=== PATIENT | female | born 2000 | race Caucasian/White ===

== ENCOUNTER 2020-02-11 18:52 | Emergency (ER) | payer OTHER, SELFPAY ==
--- NOTE | 2020-02-11 19:27 | PC.NURSE ---
PT is sitting in her room watching TV. Calm and cooperative. Waiting for disposition.
[2020-02-11 19:49] LABS: Amphetamine Screen Urine Not Detected (Not Detect); Barbiturates, Urine Not Detected (Not Detect); Benzodiazepines Screen Urine Not Detected (Not Detect); Cannabinoid Screen Urine POSITIVE (Not Detect); Cocaine Screen Urine Not Detected (Not Detect); Opiate Screen Urine Not Detected (Not Detect); Phencyclidine Screen Urine Not Detected (Not Detect)
[2020-02-11 19:51] LABS: UPreg QC Valid YES; Urine Pregnancy NEGATIVE (NEGATIVE)
[2020-02-11 20:05] VITALS: BMI 19.5
--- NOTE | 2020-02-11 20:12 | ED.PSYCH ---
HPI - Psych General Chief Complaint: Psychiatric Symptoms Stated Complaint: CRISIS Time Seen by Provider: 02/11/20 20:28 Source: patient Mode of arrival: ambulatory Limitations: no limitations History of Present Illness HPI Narrative: patient brought to the ED for possible suicide thoughts or intent. Patient was found the bridge. Patient herself denies ever being suicidal. Patient states she was on the bridge looking for her loss social security card and credit card bills. Patient states her and her parents had a pleasant interaction today and she was having a great time with her nephew when she realized she lost her cards. Patient states she is just came from [place] and she is under lot of stress. Related Data Allergies Allergy/AdvReac Type Severity Reaction Status Date / Time No Known Allergies Allergy Unverified 12/19/19 16:44 Review of Systems Review of Systems: Yes all other systems are reviewed and are negative Constitutional: Constitutional: Reports as per HPI and Reports no additional constitutional complaints Eyes: Eyes: Reports as per HPI and Reports no additional eye complaints ENT: Reports system reviewed and no additional complaints, except as documented and Reports as per HPI Cardiovascular: Cardiovascular: Reports as per HPI and Reports no additional cardiovascular complaints Respiratory: Respiratory: Reports as per HPI and Reports no additional respiratory complaints Gastrointestinal: Gastrointestinal: Reports as per HPI and Reports no additional gastrointestinal complaints Genitourinary: Genitourinary: Reports no additional female genitourinary complaints and Reports as per HPI Musculoskeletal: Musculoskeletal: Reports no additional musculoskeletal complaints and Reports as per HPI Neurologic: Reports system reviewed and no additional complaints, except as documented and Reports as per HPI Psychiatric: Psychiatric: Reports no additional psychiatric complaints and Reports as per HPI PMF Social History Social History Alcohol intake: never Smoking Status: Light tobacco smoker Smoked in Last 30 Days: No Use of substances other than those prescribed or required for medical reasons: Yes Substance Use Type: Marijuana Substance Use Frequency: Daily Last Used Substance: Hours (ago) Any prior treatment program specific to substance use: No Advance Directives: No Advance Directives Information Provided: Yes Physical Exam Vital Signs: Vital Signs: Last Vital Signs Temp 97.8 F 02/11/20 20:23 Pulse 65 02/11/20 20:23 Resp 18 02/11/20 20:23 BP 96/56 L 02/11/20 20:23 Pulse Ox 98 02/11/20 20:23 Body Mass Index 19.5 Const: General: cooperative, healthy appearing, comfortable, no acute distress, well developed, alert, awake, Physically active and acute distress Orientation/consciousness: patient oriented x3 HENMT: Head: Yes normal to inspection and Yes No palpable skull fracture present Eyes: General: appearance normal, both eyes and all related structures Visual Cardona: normal visual cardona by confrontation Neck: Neck: Yes normal visual inspection, Yes full ROM, Yes no lymphadenopathy, Yes no meningeal signs and Yes trachea midline Chest: Chest palpation & inspection: normal inspection of the chest, normal palpation of entire chest wall and no localized rib tenderness Resp: Effort & Inspection: normal respiratory effort, able to speak in complete sentences and no audible wheezes Auscultation: clear to auscultation bilaterally, no crackles, no rales, no rhonchi and no wheezes Cardio: Jugular venous distension: no JVD Heart sounds: S1 normal heart sound present and S2 normal heart sound present GI: Inspection: Yes normal to inspection and No abdominal wall ecchymosis Palpation (GI): Soft to palpation, not firm, nontender, no guarding and not rigid : General: No CVA tenderness and Yes no CVA tenderness Back/Spine/Pelvis: Back: no CVA tenderness, No CVA tenderness and No back tenderness Skin: General skin exam: no rashes or lesions noted Trauma: no lacerations or abrasions Neuro: General: patient oriented x3, gait normal, no meningeal signs and CN's II-XI intact bilaterally Cranial nerves: Yes CN's II-XII intact bilaterally Extrem: General: Yes normal to inspection and Yes full ROM Psych: Appearance: grossly normal, well kempt and not disheveled Course Course Course Narrative: Patient will have basic labs done including U tox and be evaluated by care team. Patient seemed very animated while being interviewed. Reevaluation(s) Reevaluation #1: patient evaluated by [facility] consultant who states she cannot get in contact with patient's mother to confirm story. She recommend patient stay overnight until mother can be reached and then patient to be re-evaluated. Case signed out to MD Gotti. Time: 03:06 MDM - Psych MDM Narrative Medical decision making narrative: Depression Lab Data Result diagrams: 02/11/20 21:12 02/11/20 21:12 Labs: Lab Results 11/10/20 11/10/20 11/10/20 Range/Units 19:12 19:12 21:12 WBC 8.9 (4.8-10.8) X10*3/uL RBC 4.76 (4.20-5.50) X10*6/uL Hgb 13.7 (12.0-16.0) g/dl Hct 41.0 (37-47) % MCV 86.1 (80-98) fL MCH 28.8 (27.0-33.0) pg MCHC 33.4 (31.0-35.0) g/dl RDW 12.7 (11.0-16.0) % Plt Count 250 (160-400) X10*3/uL MPV 10.2 (9.4-12.3) fL Immature Gran % (Auto) 0.2 (0.0-0.4) % Neut % (Auto) 82.3 H (45-73) % Lymph % (Auto) 10.9 L (20-40) % Mcdowell % (Auto) 6.1 (2-11) % Eos % (Auto) 0.1 (0-4) % Baso % (Auto) 0.4 (0-2) % Lymph # (Auto) 1.0 L (1.2-4.9) X10*3/uL Mcdowell # (Auto) 0.5 (0.1-1.2) X10*3/uL Eos # (Auto) 0.0 (0.0-0.4) X10*3/uL Baso # (Auto) 0.0 (0.0-0.2) X10*3/uL Abs Immat Gran (auto) 0.02 (0.00-0.03) X10*3/uL Absolute Neuts (auto) 7.3 (2.0-8.3) X10*3/uL Absolute Nucleated RBC 0.000 (0.0-0.012) X10*3/uL Nucleated RBC % (auto) 0.0 (0.0-0.2) /100WBC Sodium (135-145) mmol/L Potassium (3.3-5.1) mmol/l Chloride (96-108) mmol/L Carbon Dioxide (22-29) mmol/L Anion Gap (12-20) BUN (9-16) mg/dL Creatinine (0.5-1.4) mg/dL Estim Creat Clear Calc Estimated GFR Random Glucose (60-115) mg/dL Calcium (8.4-10.2) mg/dL Total Bilirubin (0.0-1.0) mg/dL Direct Bilirubin (0.0-0.5) mg/dL AST (5-31) U/L ALT (0-31) U/L Alkaline Phosphatase (39-117) U/L Total Protein (6.5-8.0) g/dL Albumin (3.5-5.0) g/dL Urine Test NEGATIVE (NEGATIVE) Urine Opiates Screen Not Detected (Not Detect) Ur Barbiturates Screen Not Detected (Not Detect) Ur Phencyclidine Scrn Not Detected (Not Detect) Ur Amphetamines Screen Not Detected (Not Detect) U Benzodiazepines Scrn Not Detected (Not Detect) Urine Cocaine Screen Not Detected (Not Detect) U Marijuana (THC) Screen POSITIVE H (Not Detect) Ethyl Alcohol mg/dL 02/11/20 02/11/20 Range/Units 21:12 21:12 WBC (4.8-10.8) X10*3/uL RBC (4.20-5.50) X10*6/uL Hgb (12.0-16.0) g/dl Hct (37-47) % MCV (80-98) fL MCH (27.0-33.0) pg MCHC (31.0-35.0) g/dl RDW (11.0-16.0) % Plt Count (160-400) X10*3/uL MPV (9.4-12.3) fL Immature Gran % (Auto) (0.0-0.4) % Neut % (Auto) (45-73) % Lymph % (Auto) (20-40) % Mcdowell % (Auto) (2-11) % Eos % (Auto) (0-4) % Baso % (Auto) (0-2) % Lymph # (Auto) (1.2-4.9) X10*3/uL Mcdowell # (Auto) (0.1-1.2) X10*3/uL Eos # (Auto) (0.0-0.4) X10*3/uL Baso # (Auto) (0.0-0.2) X10*3/uL Abs Immat Gran (auto) (0.00-0.03) X10*3/uL Absolute Neuts (auto) (2.0-8.3) X10*3/uL Absolute Nucleated RBC (0.0-0.012) X10*3/uL Nucleated RBC % (auto) (0.0-0.2) /100WBC Sodium 138 (135-145) mmol/L Potassium 3.9 (3.3-5.1) mmol/l Chloride 103 (96-108) mmol/L Carbon Dioxide 26 (22-29) mmol/L Anion Gap 13 (12-20) BUN 13 (9-16) mg/dL Creatinine 0.77 (0.5-1.4) mg/dL Estim Creat Clear Calc 91.0 Estimated GFR > 60 Random Glucose 91 (60-115) mg/dL Calcium 9.3 (8.4-10.2) mg/dL Total Bilirubin 0.8 (0.0-1.0) mg/dL Direct Bilirubin 0.3 (0.0-0.5) mg/dL AST 19 (5-31) U/L ALT 13 (0-31) U/L Alkaline Phosphatase 63 (39-117) U/L Total Protein 7.5 (6.5-8.0) g/dL Albumin 4.9 (3.5-5.0) g/dL Urine Test (NEGATIVE) Urine Opiates Screen (Not Detect) Ur Barbiturates Screen (Not Detect) Ur Phencyclidine Scrn (Not Detect) Ur Amphetamines Screen (Not Detect) U Benzodiazepines Scrn (Not Detect) Urine Cocaine Screen (Not Detect) U Marijuana (THC) Screen (Not Detect) Ethyl Alcohol < 10 mg/dL Discharge Plan Discharge Clinical Impression: Depression
[2020-02-11 20:23] VITALS: BP 96/56; PULSE 65; RESP 18; TEMP 36.6; O2SAT 98
--- NOTE | 2020-02-11 20:46 | PC.NURSE ---
Mom called for a report on her daughter. PT gave consent to talk to mother. Mother stated that PT was texting her father saying that she wanted to kill herself. Mother also stated that the PT has been very stressed out since moving back in with mother and while trying to find a job. PT denied texting her father and saying that she wants to kill herself.
[2020-02-11 21:21] LABS: Basophils Percent Auto 0.4 % (0-2); Eosinophils Percent Auto 0.1 % (0-4); Hemoglobin 13.7 g/dl (12.0-16.0); Imm Gran Abs Auto 0.02 X10*3/uL (0.00-0.03); Imm Gran Pct Auto 0.2 % (0.0-0.4); Lymphocytes Percent Auto 10.9 % (20-40); MANUAL DIFF FLAG NO; Mean Corpuscular HGB Conc 33.4 g/dl (31.0-35.0); Mean Corpuscular Hemoglobin 28.8 pg (27.0-33.0); Mean Corpuscular Volume 86.1 fL (80-98); Mean Platelet Volume 10.2 fL (9.4-12.3); Monocytes Absolute Auto 0.5 X10*3/uL (0.1-1.2); Monocytes Percent Auto 6.1 % (2-11); Neutrophils Absolute Auto 7.3 X10*3/uL (2.0-8.3); Neutrophils Percent Auto 82.3 % (45-73); Platelet Count 250 X10*3/uL (160-400); Red Blood Count 4.76 X10*6/uL (4.20-5.50); Red Cell Distribution Width 12.7 % (11.0-16.0); White Blood Count 8.9 X10*3/uL (4.8-10.8)
[2020-02-11 21:50] LABS: Ethanol < 10 mg/dL
[2020-02-11 21:55] LABS: Alanine Aminotransferase 13 U/L (0-31); Albumin Level 4.9 g/dL (3.5-5.0); Alkaline Phosphatase 63 U/L (39-117); Anion Gap 13 (12-20); Aspartate Amino Transferase 19 U/L (5-31); Bilirubin Direct 0.3 mg/dL (0.0-0.5); Bilirubin Total 0.8 mg/dL (0.0-1.0); Blood Urea Nitrogen 13 mg/dL (9-16); Calcium 9.3 mg/dL (8.4-10.2); Carbon Dioxide 26 mmol/L (22-29); Chloride 103 mmol/L (96-108); Estimated Glomerular Filt Rate > 60; Glucose Random 91 mg/dL (60-115); Potassium 3.9 mmol/l (3.3-5.1); Sodium 138 mmol/L (135-145); Total Protein 7.5 g/dL (6.5-8.0)
[2020-02-12 06:49] VITALS: BP 117/71; PULSE 105; RESP 18; TEMP 37.1; O2SAT 99
[2020-02-12 07:58] VITALS: RESP 18
--- NOTE | 2020-02-12 10:23 | MHC.CARE ---
0900 Lengthy conversation with patient's mother. She confirmed the information gathered last night about patient feeling overwhelmed by stressors such as recent breakup, losing her ID, upset that her father did not answer his phone. She reported that family is very supportive of her and are close. Mother is not worried about her daughter's safety, said she has never threatened or gestured suicide, said she has spoken to her daughter this morning and looking forward to bringing her home, will help her replace the ID today. Met with patient in BH area of the ED, she was easily engaged, denied any thoughts of ending her; stated she was being dramatic yesterday, feels very different today and apologized for causing any trouble. She is open to a therapy referral, CARE Team will coordinate with [facility] who will call patient directly. Spoke to PA and RN about disposition.
== END 2020-02-12 10:37 | disposition home or self-care (01) ==
PROVIDERS: Physician Assistant; Emergency Provider Emergency Medicine
DX: F33.1 Major depressive disorder, recurrent, moderate (principal); R45.851 Suicidal ideations; F12.90 Cannabis use, unspecified, uncomplicated; Z79.899 Other long term (current) drug therapy
CPT/HCPCS: 36415; 80053; 80076; 80307; 80320; 81025; 82248; 85025; 99283; 99284

== ENCOUNTER 2021-05-12 14:49 | Emergency (ER) | payer OTHER, MEDICAID, SELFPAY ==
[2021-05-12 15:17] VITALS: BP 113/59; PULSE 90; RESP 19; TEMP 36.6; O2SAT 98; BMI 16.8
--- NOTE | 2021-05-12 16:03 | ED.WOUNDLAC ---
HPI - Wound/Laceration General Chief Complaint: Wound/Laceration Stated Complaint: head inj fell down stairs Time Seen by Provider: 05/12/21 15:53 History of Present Illness HPI narrative: Patient complains of cutting her head in a fall she had no headache no loss of consciousness no confusion , remembers everything, denies any other Related Data Home Medications Medication Instructions Recorded Confirmed No Known Home Meds 04/21/21 04/21/21 Allergies Allergy/AdvReac Type Severity Reaction Status Date / Time No Known Allergies Allergy Verified 04/21/21 13:33 Review of Systems Review of Systems: Positive for scalp laceration Negatives no loss of consciousness no headache no confusion no retrograde amnesia he a no vomiting no extremity pains PMFSH Past Medical History Source: nursing notes reviewed Social History Social History Alcohol intake: never Patient Tobacco Use Status: Never used Tobacco Substance Use Type: Marijuana Patient : No Physical Exam Vital Signs: Vital Signs: Last Vital Signs Temp 98 F 05/12/21 15:17 Pulse 90 05/12/21 15:17 Resp 19 05/12/21 15:17 BP 113/59 L 05/12/21 15:17 Pulse Ox 98 05/12/21 15:17 BMI result Body Mass Index 16.8 In the back of the scalp there is a 1 cm superficial laceration that needs no repair which is not bleeding now there is no surrounding hematoma no defect Facial exam no raccoon eyes Neck is supple Respiratory no distress Extremities full range of motion x4 Neuro Patient communicated normally with normal comprehension and expression, gait was normal Course Course Course Narrative: I saw this patient in the waiting room as a screen to see if she needed a head CT or a laceration repair, but there were no rooms in the ER I did inform her that the wound did not need stapling and the patient said thank you and left the department so I did not complete the physical exam Discharge Plan Discharge Clinical Impression: Laceration of scalp Patient Disposition: [facility]opement Prescriptions: No Action No Known Home Meds 0RF
== END 2021-05-12 19:32 | disposition left against medical advice (07) ==
PROVIDERS: Emergency Provider Internal Medicine
DX: S01.01XA Laceration without foreign body of scalp, initial encounter (principal); W10.8XXA Fall (on) (from) other stairs and steps, initial encounter; Y93.89 Activity, other specified; Y92.9 Unspecified place or not applicable; Y99.9 Unspecified external cause status
CPT/HCPCS: 99282; 99283

== ENCOUNTER 2021-05-26 13:12 | Outpatient (REF) | payer OTHER, MEDICAID, SELFPAY ==
[2021-05-26 17:14] LABS: CT PCR DETECTED (Not Detect.)
[2021-05-26 17:16] LABS: NG PCR NOT DETECTED (Not Detect.)
[2021-05-27 13:19] LABS: BV Int Neg Control Negative (Negative); BV Int Pos Control Positive (Positive)
== END 2021-05-26 13:13 | disposition home or self-care (01) ==
LOC: HO.LAB 13:12
PROVIDERS: PCP Physician Assistant; Visit Provider Advanced Practice Midwife
DX: Z01.411 Encounter for gynecological examination (general) (routine) with abnormal findings (principal); Z11.51 Encounter for screening for human papillomavirus (HPV); Z20.2 Contact with and (suspected) exposure to infections with a predominantly sexual mode of transmission; L73.8 Other specified follicular disorders
CPT/HCPCS: 87480; 87491; 87510; 87591; 87660; 88142

== ENCOUNTER 2023-05-07 21:15 | Emergency (ER) | payer OTHER, MEDICAID, SELFPAY ==
--- NOTE | 2023-05-07 | ECG_ITS ---
Test Reason : cx pain Blood Pressure : / mmHG Vent. Rate : 066 BPM Atrial Rate : 066 BPM P-R Int : 120 ms QRS Dur : 076 ms QT Int : 380 ms P-R-T Axes : 012 085 069 degrees QTc Int : 398 ms Normal sinus rhythm Normal ECG No previous ECGs available Referred By: Generic ED Physician Electronically Signed By:HERNAN GUAJARDO
[2023-05-07 22:01] VITALS: BP 119/69; PULSE 73; RESP 16; TEMP 36.8; O2SAT 99; BMI 18.7
[2023-05-07 22:04] LABS: MANUAL DIFF FLAG NO
[2023-05-07 22:06] LABS: Basophils Percent Auto 0.3 % (0-2); Eosinophils Percent Auto 0.2 % (0-4); Hemoglobin 15.4 g/dl (12.0-16.0); Imm Gran Abs Auto 0.02 X10*3/uL (0.00-0.03); Imm Gran Pct Auto 0.2 % (0.0-0.4); Lymphocytes Absolute Auto 1.6 X10*3/uL (1.2-4.9); Mean Corpuscular HGB Conc 35.8 g/dl (31.0-35.0); Mean Corpuscular Hemoglobin 30.6 pg (27.0-33.0); Mean Corpuscular Volume 85.3 fL (80.0-98.0); Mean Platelet Volume 9.6 fL (9.4-12.3); Monocytes Absolute Auto 0.7 X10*3/uL (0.1-1.2); Neutrophils Absolute Auto 7.8 x10*3/uL (2.0-8.3); Neutrophils Percent Auto 76.3 % (45-73); Platelet Count 322 X10*3/uL (160-400); Red Blood Count 5.04 X10*6/uL (4.20-5.50); Red Cell Distribution Width 12.9 % (11.0-16.0); White Blood Count 10.2 X10*3/uL (4.8-10.8)
[2023-05-07 22:07] LABS: Appearance Urine Cloudy; Color Urine Yellow; Glucose Urine UA Negative (Negative); Leukocyte Esterase Urine Small (1+) (Negative); Nitrite Urine Negative (Negative); PH 5.5 (5.0-9.0); Specific Gravity - Urine 1.025 (1.005-1.025); UMIC TRIGGER UACC YES; Urine Blood Small (1+) (Negative); Urine Ketones 80 mg/dL (Negative); Urine Protein Trace mg/dL (Neg-Trace)
[2023-05-07 22:18] LABS: Bacteria Urine 1+ (None Seen); Hyaline Casts Urine 0-2 /LPF (0-2); UACC Culture Trigger YES
[2023-05-07 22:22] LABS: Alanine Aminotransferase 12 U/L (0-31); Albumin Level 4.9 g/dL (3.5-5.0); Alkaline Phosphatase 62 U/L (39-117); Anion Gap 16 (12-20); Aspartate Amino Transferase 16 U/L (5-31); Bilirubin Direct 0.6 mg/dL (0.0-0.5); Bilirubin Total 1.9 mg/dL (0.0-1.0); Blood Urea Nitrogen 13 mg/dL (9-16); Calcium 10.1 mg/dL (8.4-10.2); Carbon Dioxide 24 mmol/L (22-29); Chloride 99 mmol/L (96-108); Creatinine Clr Calc Pharmacy 74.7; Estimated Glomerular Filt Rate > 60; Glucose Random 121 mg/dL (60-115); Lipase 12 U/L (8-78); Potassium 3.7 mmol/L (3.3-5.1); Sodium 135 mmol/L (135-145); Total Protein 8.1 g/dL (6.5-8.0)
[2023-05-07 22:29] LABS: Troponin-I High Sensitivity < 2.7 ng/L (<3.5-17.0)
== END 2023-05-08 03:23 | disposition left against medical advice (07) ==
PROVIDERS: Emergency Provider Emergency Medicine
DX: R07.89 Other chest pain (principal); Z79.899 Other long term (current) drug therapy
CPT/HCPCS: 36415; 80048; 80076; 81001; 83690; 84484; 85025; 87086; 93005; 99283

== ENCOUNTER → 2023-05-07 21:22 | Outpatient (BNV) | payer OTHER, MEDICAID, SELFPAY | PROVIDERS: Emergency Provider Emergency Medicine; Visit Provider Internal Medicine | DX: R07.9 Chest pain, unspecified (principal) | CPT/HCPCS: 93010 ==

== ENCOUNTER 2023-05-24 17:31 | Emergency (ER) | payer OTHER, MEDICAID, SELFPAY ==
--- NOTE | ~2023-05-24 | US_ITS ---
EXAMINATION: US ABDOMEN LIMITED CLINICAL INFORMATION: Right upper quadrant and epigastric tenderness to palpation. COMPARISON: None available. TECHNIQUE: Real-time imaging of the right upper quadrant abdominal viscera. FINDINGS: PANCREAS: Normal. LIVER: The liver is normal in size. The liver contour is normal. Parenchymal echogenicity is normal. Two echogenic masses in the liver are seen measuring 0.9 and 1.6 cm. There is no intrahepatic biliary duct dilatation seen. GALLBLADDER: The gallbladder is physiologically distended without evidence of stones, sludge, polyps, wall thickening or pericholecystic fluid. COMMON BILE DUCT: Normal in caliber measuring 0.3 cm in diameter. RIGHT KIDNEY: Normal. No hydronephrosis. No renal calculi or focal parenchymal lesions. The kidney measures 9.5 cm in maximum dimension. FREE FLUID: None. US/US abdomen limited IMPRESSION: Two echogenic masses in the liver. These are most likely hemangiomas. MRI could be performed for confirmation.
--- NOTE | ~2023-05-24 | XR_ITS ---
EXAMINATION: XR CHEST CLINICAL INFORMATION: Chest COMPARISON: None available. TECHNIQUE: Frontal view of the chest was obtained. FINDINGS: No significant abnormality is noted involving the heart, lungs, mediastinum, bony thorax or soft tissues. XR/XR chest 1V IMPRESSION: Unremarkable examination.
--- NOTE | 2023-05-24 17:32 | ECG_ITS ---
Test Reason : abd pain /some chest pain Blood Pressure : / mmHG Vent. Rate : 068 BPM Atrial Rate : 068 BPM P-R Int : 138 ms QRS Dur : 076 ms QT Int : 372 ms P-R-T Axes : 085 086 073 degrees QTc Int : 395 ms Normal sinus rhythm Normal ECG When compared with ECG of 07-MAY-2023 21:22, No significant change was found Referred By: Shelia Sweet Electronically Signed By:ROSA HUGO MD
--- NOTE | 2023-05-24 17:34 | MHC.EDTECH ---
PATIENT REFUSED EKG ,TRIAGE PROVIDER AND HEAVY REPAIRER AWARE .
--- NOTE | 2023-05-24 17:54 | ED_ITS ---
HPI - Chest Pain General Chief Complaint: Abdominal Pain Stated Complaint: chest pain and upper abd pain Time Seen by Provider: 05/24/23 21:12 Source: patient Mode of arrival: ambulatory Limitations: no limitations History of Present Illness HPI narrative: 22 YOU OLD healthy female presents to the ED for upper abdominal pain radiating to chest for the past two weeks described as acid burning sensation, and nuasea. Patient denies any pleurisy, shortness of breath, flank pain, fever, chills, leg swelling, calf pain, recent surgery, recent long travel, or control use. Related Data Previous Rx's Medication Instructions Recorded famotidine 20 mg tablet (Pepcid) 20 mg PO BID 10 days #20 tabs 05/25/23 Allergies Allergy/AdvReac Type Severity Reaction Status Date / Time No Known Allergies Allergy Verified 05/24/23 17:56 Review of Systems 2 Review of Systems: epigastric burning acid sensation going up to chest Yes all other systems are reviewed and are negative [facility] Social History Social History (Updated 05/26/21 @ 13:35 by Rosita Fowler [facility]) Alcohol intake: current Alcohol intake frequency: holidays/special occasions only Patient Tobacco Use Status: Never used Tobacco Smoked in Last 30 Days: No Use of substances other than those prescribed or required for medical reasons: No Substance Use Type: Marijuana Advance Directives: No Advance Directives Information Provided: No Patient : No Gender identity: Female Physical Exam 2 Vital Signs: Vital Signs: Last Vital Signs Temp 98.0 F 05/24/23 21:52 Pulse 56 05/24/23 21:52 Resp 20 05/24/23 21:52 BP 121/72 05/24/23 21:52 Pulse Ox 98 05/24/23 21:52 O2 Del Method Room Air 05/24/23 21:52 BMI result Body Mass Index 18.8 Const: General: cooperative, healthy appearing, comfortable, no acute distress, well developed, alert, awake and Physically active O rientation/consciousness: oriented to person, oriented to place, oriented to time and patient oriented x3 HEENT: Head: Yes normal to inspection, Yes No palpable skull fracture present, Yes normocephalic and Yes atraumatic Eyes: General: appearance normal, both eyes and all related structures Neck: Neck: Yes normal visual inspection, Yes full ROM, Yes no lymphadenopathy, Yes no meningeal signs, Yes trachea midline, Yes supple, No anterior neck swelling and No tender Chest: Chest palpation & inspection: normal inspection of the chest and normal palpation of entire chest wall Resp: Effort & Inspection: normal respiratory effort and able to speak in complete sentences Auscultation: clear to auscultation bilaterally Cardio: Jugular venous distension: no JVD Heart sounds: S1 normal heart sound present and S2 normal heart sound present GI: Inspection: Yes normal to inspection Palpation (GI): Soft to palpation, not firm, Tenderness to palpation present (GI) in the epigastrum, no guarding and not rigid : General: Yes no CVA tenderness Back/Spine/Pelvis: Back: no CVA tenderness and No back tenderness Skin: General skin exam: no rashes or lesions noted, elasticity normal and turgor normal Neuro: General: oriented to person, oriented to place, oriented to time, patient oriented x3, gait normal, tone normal, moves all extremities, Normal light touch and pain sensation, no meningeal signs, no focal motor deficits and CN's II-XI intact bilaterally Extrem: Other: bilateral lower extremity swelling negative for swelling, pitting edema, or calf tenderness. General: Yes normal to inspection, Yes full ROM and Yes capillary refill normal Psych: Appearance: grossly normal, well kempt and not disheveled Course Course Course Narrative: RME: 22 year-old F w/no sig PMHx presenting to the ED c/o chest/epigastric abdominal pain x2 weeks worsening over the past 3 nights. Feels like ball. +nausea, pain worsened with eating w/ decreased appetite. went to [facility] 2 weeks ago and was given GI cocktail w/o relief abdomen soft w/epigastric/RUQ ttp EKG (pt refused), Labs, UA, Abd US ordered Full HPI, ROS and PE to be performed by primary ED provider. Medications Administered Discontinued Medications Generic Name Dose Route Start Last Admin Trade Name Freq PRN Reason Stop Dose Admin Al Hydroxide/Mg Hydroxide 30 ml 05/24/23 22:25 05/24/23 22:53 Magnesium Hydrox/Alum Hydrox 30 Ml Oral.Susp PO 05/24/23 22:26 Not Given ONCE ONE Belladonna Alkaloids/Phenobarbital 10 ml 05/24/23 22:25 05/24/23 22:53 Phenobarb/Hyoscy/Atropine/Scop 10 Ml Elixir PO 05/24/23 22:26 Not Given ONCE ONE Famotidine 20 mg 05/24/23 22:26 05/24/23 22:50 Famotidine 20 Mg Tablet PO 05/24/23 22:27 20 mg ONCE ONE Administration Lidocaine HCl 15 ml 05/24/23 22:25 05/24/23 22:53 Lidocaine Hcl Viscous 2 % 15 Ml Solution MUCOUS MEM 05/24/23 22:26 Not Given ONCE ONE Medical Decision Making Medical Decision Making [facility] Narrative: 22 yold female presents to the ED for epigatric pain radiating to chest. GERD like symptoms. Symptoms improved with GI cocktail. EKG negative stemi. Ultrasound negative gallstones. Patient informed of hemangiomas. Chest xray normal. patient would like to be dsicharged and states feeling better. Patient explained worrisome signs and informed to return to the ED if he has them Differential Diagnosis Differential Diagnoses: The differential diagnosis associated with the presentation includes Admission/Observation Consideration of admission/observation: Escalation of care including admission/observation considered Lab Data [facility] Lab Attestation statement: I reviewed the patient's lab results. 05/24/23 18:52 05/24/23 18:52 Labs: Lab Results 05/24/23 05/24/23 05/24/23 Range/Units 18:52 18:53 23:05 WBC 7.7 (4.8-10.8) X10*3/uL RBC 4.84 (4.20-5.50) X10*6/uL Hgb 14.4 (12.0-16.0) g/dl Hct 42.2 (37.0-47.0) % MCV 87.2 (80.0-98.0) fL MCH 29.8 (27.0-33.0) pg MCHC 34.1 (31.0-35.0) g/dl RDW 12.8 (11.0-16.0) % Plt Count 279 (160-400) X10*3/uL MPV 9.5 (9.4-12.3) fL Immature Gran % (Auto) 0.3 (0.0-0.4) % Neut % (Auto) 69.7 (45-73) % Lymph % (Auto) 22.7 (20-40) % Villalba % (Auto) 6.0 (2-11) % Eos % (Auto) 0.9 (0-4) % Baso % (Auto) 0.4 (0-2) % Lymph # (Auto) 1.8 (1.2-4.9) X10*3/uL [place] # (Auto) 0.5 (0.1-1.2) X10*3/uL Eos # (Auto) 0.1 (0.0-0.4) X10*3/uL Baso # (Auto) 0.0 (0.0-0.2) X10*3/uL Abs Immat Gran (auto) 0.02 (0.00-0.03) X10*3/uL Absolute Neuts (auto) 5.4 (2.0-8.3) x10*3/uL Absolute Nucleated RBC 0.000 (0.0-0.012) X10*3/uL Nucleated RBC % (auto) 0.0 (0.0-0.2) /100WBC Sodium 139 (135-145) mmol/L Potassium 4.1 (3.3-5.1) mmol/L Chloride 107 (96-108) mmol/L Carbon Dioxide 26 (22-29) mmol/L Anion Gap 10 L (12-20) BUN 9 (9-16) mg/dL Creatinine 0.70 (0.5-1.4) mg/dL Estim Creat Clear Calc 94.0 Estimated GFR > 60 Random Glucose 120 H (60-115) mg/dL Calcium 9.7 (8.4-10.2) mg/dL Magnesium 2.1 (1.6-2.6) mg/dL Total Bilirubin 0.6 (0.0-1.0) mg/dL Direct Bilirubin 0.2 (0.0-0.5) mg/dL AST 15 (5-31) U/L ALT 12 (0-31) U/L Alkaline Phosphatase 59 (39-117) U/L Troponin I High Sens < 2.7 < 2.7 (<3.5-17.0) ng/L Total Protein 7.2 (6.5-8.0) g/dL Albumin 4.4 (3.5-5.0) g/dL Lipase 13 (8-78) U/L Urine Color Yellow Urine Appearance Clear Urine pH 5.5 (5.0-9.0) Ur Specific [place] 1.025 (1.005-1.025) Urine Protein Negative (Neg-Trace) mg/dL Urine Glucose (UA) Negative (Negative) mg/dL Urine Ketones Negative (Negative) mg/dL Urine Blood Negative (Negative) Urine Nitrite Negative (Negative) Ur Leukocyte Esterase Negative (Negative) Urine Test NEGATIVE (NEGATIVE) Independent Interpretation I performed an independent interpretation of an: EKG (normal) and Plain X-Ray Radiology Impression Discussion of test interpretation with radiology: I have reviewed the radiologist's reading. Prescription Management I considered prescription management with: Other Discharge Plan Discharge Clinical Impression: Abdominal pain, GERD (gastroesophageal reflux disease), Chest pain Patient Disposition: Home, Self-Care Instructions: Chest Pain (ED), Gastroesophageal Reflux Disease (ED), Abdominal Pain (ED) Additional Instructions: Recommend follow-up with primary care provider. Return to ED immediately for any chest pain, shortness of breath, abdominal pain, nausea, vomiting, rectal bleeding, vomiting blood, blood in stool, calf pain, leg swelling, chest pain/shortness of breath on inspiration, or any other concerning symptoms. YOu have hemangoimas on you liver. Please follow up with PCP. Prescriptions: New famotidine [Pepcid] 20 mg tablet 20 mg PO BID 10 Days Qty: 20 0RF Referrals: [facility] Gastroenterology Services [Provider Group] ([facility]. ) Stand Alone Forms: Work/School Release Interventions: ED Discharge Assessment Last Done: 05/25/23 00:15 Discharge Date/Time: 05/25/23 00:16 Print Language: Burundian
[2023-05-24 17:56] VITALS: BP 114/73; PULSE 70; TEMP 36.6; O2SAT 98; BMI 18.8
--- NOTE | 2023-05-24 18:55 | MHC.EDTECH ---
PATIENT BLOOD DRAWN .URINE SAMPLE COLLECTED AND SENT TO LAB ,EKG TAKEN AND WAS READ BY PROVIDER .
[2023-05-24 18:57] LABS: MANUAL DIFF FLAG NO
[2023-05-24 18:58] LABS: Basophils Percent Auto 0.4 % (0-2); Eosinophils Absolute Auto 0.1 X10*3/uL (0.0-0.4); Eosinophils Percent Auto 0.9 % (0-4); Hematocrit 42.2 % (37.0-47.0); Hemoglobin 14.4 g/dl (12.0-16.0); Imm Gran Abs Auto 0.02 X10*3/uL (0.00-0.03); Imm Gran Pct Auto 0.3 % (0.0-0.4); Lymphocytes Absolute Auto 1.8 X10*3/uL (1.2-4.9); Lymphocytes Percent Auto 22.7 % (20-40); Mean Corpuscular HGB Conc 34.1 g/dl (31.0-35.0); Mean Corpuscular Hemoglobin 29.8 pg (27.0-33.0); Mean Corpuscular Volume 87.2 fL (80.0-98.0); Mean Platelet Volume 9.5 fL (9.4-12.3); Monocytes Absolute Auto 0.5 X10*3/uL (0.1-1.2); Neutrophils Absolute Auto 5.4 x10*3/uL (2.0-8.3); Neutrophils Percent Auto 69.7 % (45-73); Platelet Count 279 X10*3/uL (160-400); Red Blood Count 4.84 X10*6/uL (4.20-5.50); Red Cell Distribution Width 12.8 % (11.0-16.0); White Blood Count 7.7 X10*3/uL (4.8-10.8)
[2023-05-24 19:03] LABS: UPreg QC Valid YES; Urine Pregnancy NEGATIVE (NEGATIVE)
[2023-05-24 19:15] LABS: Alanine Aminotransferase 12 U/L (0-31); Albumin Level 4.4 g/dL (3.5-5.0); Alkaline Phosphatase 59 U/L (39-117); Anion Gap 10 (12-20); Aspartate Amino Transferase 15 U/L (5-31); Bilirubin Direct 0.2 mg/dL (0.0-0.5); Bilirubin Total 0.6 mg/dL (0.0-1.0); Blood Urea Nitrogen 9 mg/dL (9-16); Calcium 9.7 mg/dL (8.4-10.2); Carbon Dioxide 26 mmol/L (22-29); Chloride 107 mmol/L (96-108); Estimated Glomerular Filt Rate > 60; Glucose Random 120 mg/dL (60-115); Lipase 13 U/L (8-78); Magnesium 2.1 mg/dL (1.6-2.6); Potassium 4.1 mmol/L (3.3-5.1); Sodium 139 mmol/L (135-145); Total Protein 7.2 g/dL (6.5-8.0)
[2023-05-24 19:34] LABS: Troponin-I High Sensitivity < 2.7 ng/L (<3.5-17.0)
--- NOTE | 2023-05-24 20:48 | PC.NURSE ---
this rn assumed care of pt. pt reporting upper abdominal pain that feels like a burning sensation that has been occurring for multiple weeks. pt reports being seen at [facility] and being discharged. pt reports she wakes up at night ith this pain and reports trouble eating due to the pain.
--- OUTSIDE RECORDS SUMMARY | 2023-05-24 21:35 | XMS_ITS | Continuity of Care Document ---
Author Name Unknown Organization [facility] ter Address [address] [place] [id number] Care Team Providers Care Group Home Supervisor Name Role Phone Not on Staff, PCP Primary Care Physician Unavail able Encounter [facility] Date(s): 05/06/23 - 05/06/[address] [address]- Discharge Disposition: A-D/C Home Attending Physician: Lauren Rodriguez MD Admitting Physician: Luaren Rodriguez MD Referring Physician: Not on Staff, Referring MD Allergies, Adverse Reactions, Alerts No Known Medication Allergies Problem List Condition Confirmation Course Effective Dates Status Health [facility] atus Informant Underweight Confirmed Active Vital Signs Most recent to oldest [Reference Range]: 1 2 3 Height 160 cm (05/06/23 6:42 PM) 160 cm (05/06/23 6:01 PM) Weight 45.7 kg (05/06/23 6:42 PM) 45.7 kg (05/06/23 6:01 PM) Oxygen Saturation [94-100 %] 100 % (05/06/23 6:42 PM) 100 % (05/06/23 6:01 PM) 99 % (05/06/23 5:57 PM) Pulse Rate [55-90 bpm] 73 bpm (05/06/23 6:42 PM) 88 bpm (05/06/23 6:01 PM) 122 bpm *H* (05/06/23 5:57 PM) Body Mass Index [18.5-24.99 kg/m2] 17.85 kg/m2 *L* (05/06/23 6:42 PM) 17.85 kg/m2 *L* (05/06/23 6:01 PM) Blood Pressure [90-138/55-84 mm Hg] 122/79mm Hg (05/06/23 6:42 PM) 132/70mm Hg (05/06/23 6:01 PM) Respiratory Rate [16-30 br/min] 18 br/min (05/06/23 6:42 PM) 20 br/min (05/06/23 6:01 PM) Temperature [96.8-100.4 DegF] 98.1 DegF (05/06/23 6:01 PM) Mode of Delivery (Oxygen) Room air (05/06/23 6:42 PM) Room air (05/06/23 6:01 PM) Room air (05/06/23 5:57 PM) Blood pressure sites Arm, left (05/06/23 6:42 PM) Arm, right (05/06/23 6:01 PM) Temperature Route Oral (05/06/23 6:01 PM) Note * Lindsay Bolton NP: PERFORM, SIGN, VERIFY Event Display: Patient Education Handout Authored Date: [id number] * Lindsay Bolton NP: PERFORM Event Display: Patient Education Leaflets Authored Date: [id number] Uncertain Causes of Chest Pain ?? [id number] Uncertain Causes of Chest Pain Chest pain can happen for a number of reasons. Sometimes the cause can't be determined. If your??condition does not seem serious, and your pain does not appear to be coming from your heart, your healthcare provider may recommend watching it closely. Sometimes the signs of a serious problem take more time to appear. Many problems not related to your heart can cause chest pain. These include: ??? Musculoskeletal. Costochondritis is an inflammation of the tissues around the ribs that can occur from trauma or overuse injuries, or a strain of the muscles of the chest wall. ??? Respiratory. Pneumonia, collapsed lung (pneumothorax), or inflammation of the lining of the chest and lungs (pleurisy). ??? Gastrointestinal. Esophageal reflux, heartburn, ulcers, or gallbladder disease. ??? Anxiety and panic disorders ??? Nerve compression and inflammation ??? Rare problems such as aortic aneurysm or aortic dissection (a swelling of the large artery coming out of the heart or a tear in the wall of the artery), or pulmonary embolism (a blood clot in the lungs). Home care After your visit, follow these recommendations: ??? Rest today and avoid strenuous activity. ??? Take any prescribed medicine as directed. ??? Be aware of any recurrent chest pain and notice any changes ?? Follow-up care Follow up with your healthcare provider if you don't start to feel better within 24 hours, or as advised. ?? Call 911 Call 911 if any of these occur: ??? A change in the type of pain: if it feels different, becomes more severe, lasts longer, or begins to spread into your shoulder, arm, neck, jaw or back ??? Shortness of breath or increased pain with breathing ??? Weakness, dizziness, or fainting ??? Rapid heartbeat ??? Crushing sensation in your chest ??? Coughing up more than a small amount of blood. ?? When to seek medical advice Call your healthcare provider right away if any of the following occur: ??? Cough with dark coloredsputum (phlegm) or small amount of blood ??? Fever of 100.4??F??(38??C) or higher, or as directed by your healthcare provider ??? Swelling, pain or redness in one leg ?? Last Reviewed Date: 2021 ?? 2024-3728 [employer]. All rights reserved. This information is not intended as a substitute for professional medical care. Always follow your healthcare professional's instructions. ?? Patient Care team information Care Team Personnel Name: Not on Staff, PCP Position: S Physician (General Medicine) Member Role: PCP
[2023-05-24 21:52] VITALS: BP 121/72; PULSE 56; RESP 20; TEMP 36.7; O2SAT 98
[2023-05-24 22:12] LABS: Appearance Urine Clear; Color Urine Yellow; Glucose Urine UA Negative (Negative); Leukocyte Esterase Urine Negative (Negative); Nitrite Urine Negative (Negative); PH 5.5 (5.0-9.0); Specific Gravity - Urine 1.025 (1.005-1.025); Urine Blood Negative (Negative); Urine Ketones Negative (Negative); Urine Protein Negative (Neg-Trace)
[2023-05-24] MEDS: Famotidine 20 MG TABLET PO (22:50)
--- NOTE | 2023-05-24 23:16 | PC.NURSE ---
pt refused gi cocktail medication at this time, Lowell TINOCO aware.
[2023-05-24 23:32] LABS: Troponin-I High Sensitivity < 2.7 ng/L (<3.5-17.0)
== END 2023-05-25 00:16 | disposition home or self-care (01) ==
PROVIDERS: Physician Assistant; Emergency Provider Internal Medicine
DX: R07.9 Chest pain, unspecified (principal); K21.9 Gastro-esophageal reflux disease without esophagitis; R10.10 Upper abdominal pain, unspecified
CPT/HCPCS: 36415; 71045; 76705; 80048; 80076; 81003; 81025; 83690; 83735; 84484; 85025; 93005; 99284; 99285

== ENCOUNTER → 2023-05-24 17:32 | Outpatient (BNV) | payer OTHER, MEDICAID, SELFPAY | PROVIDERS: Emergency Provider Internal Medicine; Visit Provider Internal Medicine Cardiovascular Disease | DX: R07.9 Chest pain, unspecified (principal) | CPT/HCPCS: 93010 ==

== ENCOUNTER 2024-09-23 14:21 | Outpatient (AMB) | payer OTHER, SELFPAY ==
--- NOTE | 2024-09-23 14:46 | AM.OFFWIN_ITS ---
Intake Vital Signs 09/23/24 14:48 Height 5 ft 2 in Weight 106 lb BMI 19.4 BP 98/52 L Blood Pressure Location Rt brachial Position Sitting Pulse 87 Pulse Source Pulse Oximeter Temp 98.7 F Temp Source Oral Pulse Oximetry (%) 97 Oxygen Delivery Method Room Air Intake Visit Reasons: EP ? tooth infection Intake Note: Patient presents with tooth pain times 2 days Patient Tobacco Use Status: Never used Tobacco Vice President Of Communications Required: No Allergies No Known Allergies Allergy (Verified 05/24/23 17:56) Do you need a note to return to daycare/school/sports/work: Yes HPI HPI Comments History of Present Illness Details History of Present Illness - The patient is a 23-year-old female pr esenting with a dental pain. - The issue began on Monday while the patient was in [place]. - She noticed swelling to the left side of her face and pain. - She states that she has a bad tooth an d needs it removed. - The patient reports no fever associate d with the condition. - The patient experiences localized pain upon touching the affected area but de nies any jaw pain or difficulty eating. - The patient occasionally smokes cannab is. - She has a dentist and needs to have it removed. - She denies CP, SOB, abd pain, n/v/d, e ar pain, or sore throat. Physical Exam General: Cooperative, healthy appearing, comfortable, no acute distress and well developed Head: Normal to inspection Face and sinus: Swelling noted on the left lower face along the jawline. Mouth/Throat: No halitosis noted. Tongue is normal and midline. Uvula is midline. Oropharynx is pink with no exudates noted. Tonsils not swollen. Dental caries noted on the left lower molar. Gingiva is pink. No discharge noted. Neck: Normal visual inspection and full ROM. No lymphadenopathy noted. Respiratory: Normal respiratory effort and able to speak in complete sentences. Clear to auscultation bilaterally Cardiovascular: Regular rate and rhythm. Normal S1 and S2 Skin: No rashes or lesions noted Patient was informed and verbally consented to the use of an ambient scribe for clinic note documentation during this visit. [facility] Social History (Updated 05/26/21 @ 13:35 by Rosita Fowler [facility]) Alcohol intake: current Alcohol intake frequency: holidays/special occasions only Patient Tobacco Use Status: Never used Tobacco Substance Use Type: Marijuana Gender identity: Female Female Reproductive History Menstrual Age of Menarche: 14 Review of Systems Const All systems reviewed & are unremarkable except as noted in HPI and below Physical Exam Vital Signs: Last Vital Signs Temp 98.7 F 09/23/24 14:48 Pulse 87 09/23/24 14:48 BP 98/52 L 09/23/24 14:48 Pulse Ox 97 09/23/24 14:48 Oxygen Delivery Method Room Air 09/23/24 14:48 BMI result Body Mass Index 19.4 Assessment & Plan Assessment & Plan (1) Dental infection: Code(s): K04.7 - Periapical abscess without sinus Plan Most likely abscess vs dental fracture vs cavity Plan - Will start Augmentin BID for 10 days. - Needs follow up with her dentist. - Advise the patient to maintain oral hygiene by rinsing the mouth after eating or drinking to prevent further infection. - Recommend the use of mouthwash and regular brushing to maintain oral health. - Discuss the importance of avoiding chewing on the affected side to prevent exacerbation of symptoms. Medications: New amoxicillin-pot clavulanate 875-125 mg 1 tab PO Q12H 20 tabs 0RF 10 days Coding Level of Care Code New Pt Level 3 (25942) Diagnoses Dental infection K04.7
[2024-09-23 14:48] VITALS: BP 98/52; PULSE 87; TEMP 37.1; O2SAT 97; BMI 19.4
--- OUTSIDE RECORDS SUMMARY | 2024-09-23 15:54 | XMS_ITS | Clinical Summary ---
Author Organization [facility] it Address [address] [place] [address] Care Team Providers Care Mold Design Engineer Name Role Phone Sury Huff MD Primary Care Provider [phone] Allergies No known active allergies Active Problems Problem Noted Date Diagnosed Date Diagnosis unknown 03/21/2024 Overview (03/21/2024): NO ACTIVE MEDICAL PROBLEMS Immunizations Name Administration Dates Next Due DTaP (Infanrix) 6wks to less than 7yo ,06/22/2000,05/11/1999,03/08,01/06/1999 [id number] (Pentacel) 2mo to less than 5yo 01/21/2000,05/11/1999,03/08/1999,01/06 HPV, Quadrivalent 10/01/2013,03/06/2013,01/25/20 12 Hepatitis B Pediatric (Enger ix B; Recombivax HB) to less than 20 yo 09/15/2000,06/22/2000,05/11/1999 IPV Inactivated polio (Ipol) 6wks and older 12/13/2002,01/21/2000,03/08/1999,01/06 Influenza trivalent, 0.5mL, preservative free (Fluarix; FluLaval; Fluzone) ages 6mo and older (Afluria) 3 years and older 12/13/2010 MMR, measles mumps and rubel la Live (Priorix; M-M-R II) 12mo and older 12/13/2002,06/22/2000 Meningococcal MCV4P 05/27/2015,12/13/2010 Pneumococcal Conjugate Vacci ne, 7 Valent 01/21/2000 Pneumococcal conjugate 13 va lent (Prevnar 13, PCV13) 2mo and older 06/22/2000 Tdap Tetanus diptheria acell ular pertussis (Boostrix; Adacel) 7yo and older 05/05/2021,02/23/2011 Varicella live (Varivax) 12m o and older 12/13/2010,01/21/2000 Surgical History Surgery Date Site/Laterality Comments OTHER SURGICAL HISTORY PROCEDURE: DENIES PREVIOUS SURGERY Family History Medical History Relation Name Comments Diabetes Maternal Grandmother Relation Name Status Comments Maternal Grandmother Mother Alive Social History Tobacco Use Types Packs/Day Years Used Date Smoking Tobacco: Never Smokeless Tobacco: Never Alcohol Use Standard Drinks/Week Comments No 0 (1 standard drink = 0.6 oz pur e alcohol) Comments Unknown Sex and Gender Information Value Date Recorded Sex Assigned at Not on file Legal Sex Female 1:57 PM EST Gender Identity Not on file Sexual Orientation Not on file Obstetrics History Last Filed Vital Signs Vital Sign Reading Time Taken Comments Blood Pressure 52/36 12/08/2023 10:28 AM EDT Pulse 80 12/08/2023 10:28 AM EDT Temperature - - Respiratory Rate - - Oxygen Saturation - - Inhaled Oxygen Concentration - - Weight 52.3 kg (115 lb 3.2 oz) 12/08/2023 10:28 AM EDT Height 157.5 cm (5' 2 ) 10/06/2022 10:59 AM EDT Body Mass Index 21.07 10/06/2022 10:59 AM EDT Plan of Treatment Health Maintenance Due Date Last Done Comments Depression Screening 03/02/2022 Social Influencers of Health Screening 03/02/2022 COVID-19 Vaccine ( season) 2023 Cervical Cancer Screening: Pap Smear 05/26/2024 05/26/2021 Influenza Vaccine (Season Ended) 2024 12/13/2010 DTaP,Tdap,and Td Vaccines (8 - Td or Tdap) 05/05/2031 05/05/2021, 02/23/2011, 12/13/2002, Additional history exists HIB Vaccines Completed 01/21/2000, 11/1999, 03/08/1999, Additional history exists Pneumococcal Vaccine: Pediatrics (0 to 5 Years) and At-Risk Patients (6 to 64 Years) Completed 06/22/2000, 01/21/2000 Hepatitis B Vaccines Completed 09/15/2000, 06/22/2000, 05/11/1999 IPV Vaccines Completed 12/13/2002, 01/02, 01/21/2000, Additional history exists MMR Vaccines Completed 12/13/2002, 06/22/2000 Varicella Vaccines Completed 12/13/2010, 01/21/2000 HPV Vaccines Completed 10/01/2013, 07/2012, 01/25/2012 Meningococcal ACWY Vaccine Completed 05/27/2015, Gonorrhea/Chlamydia Screening Discontinued 12/08/2023 HIV Screening Completed 12/08/2023, 12/08/2023 Hepatitis C Screening Completed 12/08/2023 Hepatitis A Vaccines Aged Out No long er eligible based on patient's age to complete this topic Meningococcal B Vaccine Aged Out No l onger eligible based on patient's age to complete this topic RSV Immunization Patients Under 20 months Aged Out No longer eligible based on patient's age to complete this topic Procedures Procedure Name Priority Date/Time Associated Diagnosis Comments HEPATITIS C SCREENING Routine 12/08/2023 HIV SCREENING Routine 12/08/2023 GONORRHEA/CHLAMYDIA SCRREENING Routine 12/08/2023 PAP SMEAR Routine 05/26/2021 from Last 3 Months or Most Recently Relevant to Health Maintenance Results * HIV Screening (12/08/2023) HIV Screening Abstracted us Historical Provider HEALTH MAINTENANCE Final Result * Hepatitis C Screening (12/08/2023) Hepatitis C Screening Abstracted us Historical Provider HEALTH MAINTENANCE Final Result * Gonorrhea/Chlamydia Screening (12/08/2023) Gonorrhea/Chla mydia Screening Abstracted us Historical Provider HEALTH MAINTENANCE Final Result * Pap Smear (05/26/2021) HM Pap smear No interpreta tion,abstr acted Historical Provider HEALTH MAINTENANCE Final Result from Last 3 Months or Most Recently Relevant to Health Maintenance Care Teams Mold Design Engineer Relationship Specialty Start Date End Date Sury Huff MD [address] [place] [id number] PCP - General Internal Medicine 04/21/21
== END 2024-09-23 15:24 | disposition home or self-care (01) ==
PROVIDERS: Visit Provider Physician Assistant Medical
DX: K04.7 Periapical abscess without sinus (principal)

== ENCOUNTER → 2024-09-23 14:21 | Outpatient (BNVA) | payer OTHER, SELFPAY | PROVIDERS: Visit Provider Physician Assistant Medical | DX: Z13.89 Encounter for screening for other disorder (principal) ==

== ENCOUNTER 2024-10-07 12:19 | Emergency (ER) | payer OTHER, SELFPAY ==
[2024-10-07 12:21] VITALS: BP 112/97; PULSE 79; RESP 16; TEMP 36.6; O2SAT 97; BMI 18.4
--- NOTE | 2024-10-07 12:21 | ED_ITS ---
HPI - Dental/Oral General Chief complaint: Dental/Oral Stated complaint: Tooth pain Time Seen by Provider: 10/07/24 12:30 Source: patient Mode of arrival: ambulatory Limitations: no limitations History of Present Illness ED Provider: Randi Vallecillo NP HPI Narrative: Patient is a 23-year-old female who presents emergency department for evaluation of left lower tooth pain over the past 2 days in the setting of recently being treated for now dental infection. Reports approximately 2 weeks ago she took a 10 day course of Augmentin, this did help initially with some of the swelling to her symptoms have returned. She has not yet established appointment with her dental provider. Denies any recent dental procedures. Denies associated fevers, chills, headache, neck pain, neck stiffness, ear pain, sore throat, inability to open the mouth, foul taste, pus-like drainage, bleeding from the gums. Related Data Previous Rx's ?Medication ?Instructions ?Recorded amoxicillin 875 mg-potassium 1 tab PO Q12H 10 days #20 tabs 09/23/24 clavulanate 125 mg tablet chlorhexidine gluconate 0.12 % 15 ml buccal BID 14 day s #118 mL 10/07/24 mouthwash clindamycin HCl 150 mg capsule 450 mg (3 x 150 mg) PO TID 7 days 10/07/24 (Cleocin HCl) #63 caps Allergies Allergy/AdvReac Type Severity Reaction Status Date / Time No Known Allergies Allergy Verified 10/07/24 12:25 Review of Systems Review of Systems: Yes all other systems are reviewed and are negative PMFSH Past Medical History Attestation statement: The following information was validated with the patient. Source: old records reviewed Social History Social History (Updated 05/26/21 @ 13:35 by Rosita Fowler [facility]) Alcohol intake: current Alcohol intake frequency: holidays/special occasions only Patient Tobacco Use Status: Never used Tobacco Substance Use Type: Marijuana Do you have a plan to hurt others: No Plan Gender identity: Female Physical Exam Vital Signs: Vital Signs: Last Vital Signs Temp 97.9 F 10/07/24 12:21 Pulse 79 10/07/24 12:21 Resp 16 10/07/24 12:21 BP 112/97 H 10/07/24 12:21 Pulse Ox 97 10/07/24 12:21 O2 Del Method Room Air 10/07/24 12:21 BMI result Body Mass Index 18.4 Appearance: Alert. Oriented X3. No acute distress. Head: Normal external exam. Normocephalic. Atraumatic. Eyes: PERRLA. EOMI. Conjunctiva and sclera normal. Eyelids normal. ENT: EAC normal. TM's Normal. Pharynx normal. Uvula midline. Moist mucous membranes.? ?No trismus noted.? No drooling noted.? No muffled voice noted. Dentition:? Patient with dental fracture and marjorie to tooth number 18. Mild gingival erythema, No fluctuance.? Not consistent with peritonsillar abscess. Not consistent with dental abscess.? No salivary duct obstruction noted. Neck: Normal inspection. Neck supple. FROM. No adenopathy. No meningeal signs. No neck mass noted.? CVS: Normal heart rate and rhythm. Heart sound normal. Respiratory: No respiratory distress. Lung sounds clear to the apices bilaterally. Skin: Skin warm and dry.? Normal skin color.? Extremities: Extremities exhibit normal range of motion.? Neuro: Oriented X 3.? No motor deficit.? Medical Decision Making Medical Decision Making MDM Narrative: Patient is a 23-year-old female who presents emergency department for evaluation of dental pain with localized swelling and mild erythema to the gums as per HPI. On examination she has a dental fracture with dental marjorie present, on 09/23/2024 she was given a 10 day course of Augmentin, still remains with symptoms and instead of pain over the past 2 days has not yet seen a dental provider for this. denies any temperature sensitivity or purulence to suggest acute pulpitis. Does not appear consistent with periodontal abscess, no fluctuance or purulent drainage noted. No trismus, no associated sore throat, no dysphagia, no odynophagia, no hoarseness, no stridor, no dyspnea, low suspicion for paripharyngeal space infection. Uvula is midline, no edema to the soft palate, unlikely peritonsillar abscess. No induration below the angle of the mandible on the neck, nontoxic in appearance, unlikely parapharyngeal abscess. Posterior pharyngeal anatomy is without any evidence of distortion, unlikely retropharyngeal abscess. On examination no tenderness of the floor of the mouth, able to tolerate secretions, no drooling, no nuchal rigidity, no swelling to the neck, unlikely Tommy's angina. Not consistent with alveolar osteitis. We will send course of clindamycin to pharmacy improvement with Augmentin discussed the importance of following up outpatient with dental provider for further evaluation and treatment. Reviewed worrisome signs and symptoms that would warrant re-evaluation in the emergency department. All questions answered. Stable for discharge Differential Diagnosis Differential Diagnoses: The differential diagnosis associated with the presentation includes (See narrative above) External Record Review External record reviewed: Outpatient record Prescription Management I considered prescription management with: Antibiotic Discharge Plan Discharge Clinical Impression: Dental infection Patient Disposition: Home, Self-Care Additional Instructions: Given your lack of improvement with the previous course of Augmentin eyes sent a prescription to the pharmacy for clindamycin. Please complete the entire course do not skip any doses or stop taking early even if you begin to feel better. Use the prescription mouthwash as prescribed. As discussed, it is most important that you contact a dental provider so that you can schedule an appointment to be seen as soon as possible, they will discuss with the you options about further treatment. We have provided you an informational sheet regarding local dental clinics if you were not able to get him with your dentist in a timely fashion. It is very important to use a back-up form of control, such as barrier condoms/abstinence, while on antibiotics and for one week after as they may be ineffective in preventing while on the antibiotics. While taking antibiotics, please include probiotics that can be found over the counter or yogurt in your diet. If symptoms of a yeast infection or diarrhea oc cur, please seek evaluation. Prescriptions: New clindamycin HCl [Cleocin HCl] 150 mg capsule 450 mg PO TID 7 Days Qty: 63 0RF chlorhexidine gluconate 0.12 % mouthwash 15 ml buccal BID 14 Days Qty: 118 0RF No Action amoxicillin-pot clavulanate 875-125 mg tablet 1 tab PO Q12H 10 Days Qty: 20 0RF Referrals: Physician,None [Primary Care Provider, Medical] Interventions: ED Discharge Assessment Last Done: 10/07/24 12:33 Print Language: Korean
[2024-10-07 12:33] VITALS: BP 112/97; PULSE 79; RESP 16; TEMP 36.6; O2SAT 97
--- OUTSIDE RECORDS SUMMARY | 2024-10-07 13:07 | XMS_ITS | Clinical Summary ---
Author Organization [facility] it Address [address] [place] [address] Care Team Providers Care Stock Clerk [employer] Name Role Phone Sury Huff MD Primary Care Provider [phone] Allergies No known active allergies Active Problems Problem Noted Date Diagnosed Date Diagnosis unknown 03/21/2024 Overview (03/21/2024): NO ACTIVE MEDICAL PROBLEMS Immunizations Name Administration Dates Next Due DTaP (Infanrix) 6wks to less than 7yo ,06/22/2000,05/11/1999,03/08,01/06/1999 [id number] (Pentacel) 2mo to less than 5yo 01/21/2000,05/11/1999,03/08/1999,01/06 [...] Screening: Pap Smear 05/26/2024 05/26/2021 Influenza Vaccine (#1) 2024 12/13/2010 DTaP,Tdap,and Td Vaccines (8 - [...] Recently Relevant to Health Maintenance Care Teams Stock Clerk [employer] Relationship Specialty Start Date End Date Sury Huff MD [address] [place] [id number] PCP - General Internal Medicine 04/21/21
== END 2024-10-07 12:35 | disposition home or self-care (01) ==
PROVIDERS: Emergency Provider Emergency Medicine
DX: K04.7 Periapical abscess without sinus (principal)
CPT/HCPCS: 99282; 99283

== ENCOUNTER 2024-10-08 22:30 | Emergency (ER) | payer OTHER, SELFPAY ==
[2024-10-08 22:35] VITALS: BP 114/71; PULSE 80; RESP 18; TEMP 36.7; O2SAT 97; BMI 18.7
--- NOTE | 2024-10-09 04:08 | ED_ITS ---
HPI - General Adult General Chief complaint: Dental/Oral Stated complaint: Tooth infection Time Seen by Provider: 10/09/24 02:12 Source: patient Limitations: no limitations History of Present Illness ED Provider: Lamar Robertson PA-C HPI narrative: 23-year-old female presents with dental pain. Pain over 1 of her left lower molars, the tooth has been fractured for quite some time. Patient states she was seen at urgent Care a few weeks ago, she was given amoxicillin for dental pain. Patient states her symptoms were getting worse, she was seen here in the emergency department last week in place on Augmentin. The patient's symptoms continue to progress, she now is having focal swelling adjacent to the tooth, along the gum tooth margin. Denies fever. Patient has appointment with her dentist scheduled for October 15. Related Data Previous Rx's ?Medication ?Instructions ?Recorded amoxicillin 875 mg-potassium 1 tab PO Q12H 10 days #20 tabs 09/23/24 clavulanate 125 mg tablet chlorhexidine gluconate 0.12 % 15 ml buccal BID 14 day s #118 mL 10/07/24 mouthwash clindamycin HCl 150 mg capsule 450 mg (3 x 150 mg) PO TID 7 days 10/07/24 (Cleocin HCl) #63 caps clindamycin HCl 150 mg capsule 450 mg (3 x 150 mg) PO TID #90 caps 10/09/24 (Cleocin HCl) oxycodone 5 mg tablet 5 mg PO Q8H PRN pain #12 tab s 10/09/24 Allergies Allergy/AdvReac Type Severity Reaction Status Date / Time No Known Allergies Allergy Verified 10/08/24 22:37 Review of Systems Review of Systems: Yes all other systems are reviewed and are negative Constitutional: Constitutional: Denies fatigue and Denies fever(s) ENT: Reports dental pain and Reports facial pain Endocrine: Endocrine: Denies fatigue PMFSH Past Medical History Attestation statement: The following information was validated with the patient. Social History Social History (Updated 05/26/21 @ 13:35 by Rosita Fowler [facility]) Alcohol intake: current Alcohol intake frequency: holidays/special occasions only Patient Tobacco Use Status: Never used Tobacco Substance Use Type: Marijuana Advance Directives: No Advance Directives Information Provided: Yes Gender identity: Female Physical Exam ED Vital Signs: Vital Signs - 24 hr 10/08/24 22:35 10/09/24 04:20 10/09/24 04:21 Temperature 98.1 F 97 F 97 F Pulse Rate 80 92 92 Respiratory Rate 18 15 15 Blood Pressure 114/71 116/75 116/75 Pulse Oximetry 97 97 97 Oxygen Delivery Method Room Air Room Air Room Air BMI result Body Mass Index 18.7 Const Other: Alert, very anxious Orientation/consciousness: patient oriented x3 HENMT Other: Swelling and erythema noted along the gum tooth margin in relation to tooth number 19, extremely painful, appears to be an apical abscess, there was assoc iated swelling of the cheek as well Resp Effort & Inspection: normal respiratory effort Cardio Other: Normal peripheral perfusion Skin Other: Warm dry no rash Neuro General: patient oriented x3, gait normal, no focal motor deficits and CN's II- XI intact bilaterally Psych Other: Cooperative, extremely anxious Medications Administered Discontinued Medications Generic Name Dose Route Start Last Admin Trade Name Freq PRN Reason Stop Dose Admin Clindamycin HCl 450 mg 10/09/24 03:04 10/09/24 04:11 Clindamycin Hcl 150 Mg Capsule PO 10/09/24 03:05 Not Given ONCE ONE Procedures Abscess I/D Site: oral (Left apical tooth 19) Side (if applicable): left Sedation/analgesia: none Local Anesthetic: other anesthetic (Topical lidocaine) Technique: needle aspiration Amount of fluid expressed (mL): 2 Sent for culture/gram staining?: No Irrigation: Yes Packing used?: none Medical Decision Making Medical Decision Making MDM Narrative: 23-year-old female presents with dental pain. Pain over 1 of her left lower molars, the tooth has been fractured for quite some time. Patient states she was seen at urgent Care a few weeks ago, she was given amoxicillin for dental pain. Patient states her symptoms were getting worse, she was seen here in the emergency department last week in place on Augmentin. The patient's symptoms continue to progress, she now is having focal swelling adjacent to the tooth, along the gum tooth margin. Denies fever. Patient has appointment with her dentist scheduled for October 15. Problem: Known dental infection History: Per patient I have considered the following differential diagnoses: Dental marjorie, dental abscess, apical abscess, periodontal disease Plan: The patient has developed an apical abscess, I will drain it. Placing the patient on clindamycin. Discharge Plan Discharge Clinical Impression: Dental abscess Patient Disposition: Home, Self-Care Instructions: Dental Abscess (ED) Additional Instructions: You have a dental abscess, it was partially drained. You likely have a deeper abscess involving the tooth root. It is ideal that you have follow up with your dentist within the next few days. Take the clindamycin as directed, be sure to complete the course of antibiotics. This medication will cause diarrhea, take a probiotic. Use the oxycodone as needed for pain. Prescriptions: New clindamycin HCl [Cleocin HCl] 150 mg capsule 450 mg PO TID Qty: 90 0RF oxycodone 5 mg tablet 5 mg PO Q8H PRN (Reason: pain) Qty: 12 0RF Rx Instructions: Partial Fill upon patient request. No Action clindamycin HCl [Cleocin HCl] 150 mg capsule 450 mg PO TID 7 Days Qty: 63 0RF chlorhexidine gluconate 0.12 % mouthwash 15 ml buccal BID 14 Days Qty: 118 0RF amoxicillin-pot clavulanate 875-125 mg tablet 1 tab PO Q12H 10 Days Qty: 20 0RF Stand Alone Forms: Work/School Release Interventions: ED Discharge Assessment Last Done: 10/09/24 04:21 Discharge Date/Time: 10/09/24 04:22 Print Language: Syriac
[2024-10-09 04:20] VITALS: BP 116/75; PULSE 92; RESP 15; TEMP 36.1; O2SAT 97
[2024-10-09 04:21] VITALS: BP 116/75; PULSE 92; RESP 15; TEMP 36.1; O2SAT 97
== END 2024-10-09 04:22 | disposition home or self-care (01) ==
PROVIDERS: Emergency Provider Emergency Medicine
DX: K04.7 Periapical abscess without sinus (principal)
CPT/HCPCS: 41800; 99283; 99284